=== PATIENT | male | born 2000 | race Hispanic/Latino ===

== ENCOUNTER 2021-10-11 15:15 | Outpatient (CLI) | payer OTHER, SELFPAY ==
--- NOTE | 2021-10-11 15:23 | RAD_ITS ---
STUDY: X-RAY CHEST REASON FOR EXAM: Male, 21 years old. CHEST PAIN CHEST PAIN TECHNIQUE: XR Chest 2 Views COMPARISON: None FINDINGS: There is no demonstrated pleural abnormality. Right upper lobe, right lower lobe, and left upper lobe nodules. Normal size heart. Normal mediastinum and terese. Normal visualized pulmonary arteries. Normal visualized aortic arch and descending thoracic aorta. Normal visualized thoracic spine. Normal visualized ribs, clavicles, and shoulders. There is no demonstrated abnormality of the visualized soft tissue structures of the upper abdomen. RAD/Chest PA and Lateral IMPRESSION: Right upper lobe, right lower lobe, and left upper lobe nodules. Correlation with prior imaging would be helpful if available. Otherwise, please obtain chest CT follow-up. Electronically Signed: Rd Hutchinson MD at 15:52 EST ,
== END 2021-10-11 23:59 | disposition home or self-care (01) ==
LOC: MTRAD 15:20
PROVIDERS: PCP Family Medicine; Referring Provider Family Medicine; Visit Provider Family Medicine
DX: R07.9 Chest pain, unspecified (principal)
CPT/HCPCS: 71046

== ENCOUNTER 2021-11-13 12:44 | Outpatient (CLI) | payer OTHER, SELFPAY ==
--- NOTE | 2021-11-13 12:50 | CT_ITS ---
INDICATION: NODULES SEEN EXAMINATION: CT CHEST WITH CONTRAST - CT Chest W/ Contrast Injection TECHNIQUE: Helically acquired images were obtained of the chest following IV contrast. A radiation dose optimization technique was used for this scan. IV Contrast dosage and agent: 100 mL of [id number] COMPARISON: Chest radiograph from 10/11/2021. FINDINGS: Lungs/pleura: Central airways are patent. There are a few scattered calcified granulomas which likely correspond to the findings mentioned on the prior chest radiograph. There are no suspicious masses or nodules. No pleural effusion or pneumothorax. Vasculature: Pulmonary arteries and the thoracic aorta are normal course and caliber. Mediastinum: Heart size is normal. No pericardial effusions. No masses. No lymphadenopathy. Bones: No acute fracture or subluxation. No destructive osseous lesions. Soft tissues are unremarkable. Upper abdomen: No acute findings in the visualized upper abdomen. CT/Chest WITH Contrast IMPRESSION: 1. There are a few scattered calcified granulomas which likely corresponds findings mentioned on the prior chest radiograph. No suspicious masses or nodules. 2. The remainder of the exam is unremarkable. Electronically Signed: Caden Phelan, at 15:01 EDT ,
== END 2021-11-13 23:59 | disposition home or self-care (01) ==
PROVIDERS: PCP Family Medicine; Referring Provider Family Medicine; Visit Provider Family Medicine
DX: R91.8 Other nonspecific abnormal finding of lung field (principal)
CPT/HCPCS: 71260; Q9967